=== PATIENT | male | born 1990 ===

== ENCOUNTER 2017-12-31 19:30 | Observation (INO) | payer OTHER ==
--- NOTE | 2017-12-31 20:12 | ED PDOC ---
Lower Extremity Pain/Injury Time Seen by Provider: 12/31/17 19:49 Chief Complaint (Nursing): Lower Extremity Problem/Injury Chief Complaint (Provider): Swealling of lower extremities History Per: Patient History/Exam Limitations: no limitations Onset/Duration Of Symptoms: Days Current Symptoms Are (Timing): Still Present Severity: None Pain Scale Rating Of: 0 Additional Complaint(s): 27 y/o male with PMHx of SLE, diagnosed 10 years ago in [place] presents to ED for evaluation of lower extremities edema for 1 month. States he has been noticing edema in his lower extremities for 1 month, persistent, but improves after sleeping hours, worse at the end of the day, moving up until his external genitalia bilateral. Because he does not have a PMD, went to a Pharmacy in [facility], and the pharmacist prescribed two medications, but he does not know which meds. He has been taken these meds, but is not helping to improve his edema. Also c/o SOB with exertion, riding his bicycle, and walking up stairs. Denies Cp, cough, fevers, chills, malaise, rashes, urinary symptoms or other complains. PMD: None Past Medical History Vital Signs: Last Vital Signs Temp 98.4 F 12/31/17 19:38 Pulse 66 12/31/17 19:38 Resp 20 12/31/17 19:38 BP 162/100 H 12/31/17 19:38 Pulse Ox 99 12/31/17 19:38 - Medical History Other PMH: SLE - Surgical History Other surgeries: Kidney biopsy - Family History Family History: States: Unknown Family Hx - Home Medications Home Medications: Ambulatory Orders Medication Instructions Recorded Unobtainable 12/31/17 - Allergies Allergies/Adverse Reactions: Allergies Allergy/AdvReac Type Severity Reaction Status Date / Time No Known Allergies Allergy Verified 12/31/17 19:38 Wells Criteria for PE - Wells Criteria for Pulmonary Embolism Clinical Signs and Symptoms of DVT: Yes P.E is #1 Diagnosis, or Equally Likely: No Heart Rate >100: No Immobilization at least 3 days;Surgery previous 4 weeks: No Previous, objectively diagnosed PE or DVT: No Hemoptysis: No Malignancy w/treatment within 6 months, or palliative: No Total Score: 3 Review of Systems Constitutional: Negative for: Fever, Chills, Sweats, Weakness, Malaise Respiratory: Positive for: SOB with Exertion. Negative for: Cough, Pleuritic Pain, Wheezing Gastrointestinal: Negative for: Nausea, Vomiting, Abdominal Pain, Diarrhea Physical Exam - Reviewed Nursing Documentation Reviewed: Yes Vital Signs Reviewed: Yes - Physical Exam Appears: Positive for: Non-toxic, No Acute Distress Head Exam: Positive for: ATRAUMATIC, NORMAL INSPECTION, NORMOCEPHALIC Skin: Positive for: Normal Color, Warm, Dry. Negative for: Pallor, Rash, Jaundice Cardiovascular/Chest: Positive for: Regular Rate, Rhythm. Negative for: Chest Non Tender, Murmur, Bradycardia, Friction Rub Respiratory: Positive for: Normal Breath Sounds. Negative for: Crackles, Rales , Rhonchi, Stridor, Wheezing, Respiratory Distress, Plerual Rub Gastrointestinal/Abdominal: Positive for: Bowel Sounds (normal), Soft, Tenderness. Negative for: Distended, Guarding, Asicites Back: Positive for: Normal Inspection. Negative for: L CVA Tenderness, R CVA Tenderness Extremity: Positive for: Pedal Edema (pitting 3+ edema in both lower extremities ). Negative for: Calf Tenderness Neurologic/Psych: Positive for: Alert, Oriented - Laboratory Results Result Diagrams: 12/31/17 20:22 12/31/17 20:22 - ECG O2 Sat by Pulse Oximetry: 99 Medical Decision Making Medical Decision Making: Edema of Lower extremities -most likely secondary to Lupus Nephritis -CBC, CMP -Duplex Dago Vein US SOB on exertion -pro-bnp -troponin I -EKG -CXR case discussed with Dr. Solo Re-evaluation CXR : read by me unremarkable, but official report still pending Labs reviewed: significant for anemia, leukocytosis, elevated BUN and creatinine , hypoalbuminuria Duplex Dago vein US still pending Case discussed with Dr. Solo and decision for admission due MICHELLE and Nephrotic syndrome was made. Hospitalist enterprise resource planning consultant, DR Thornton was called, and report was given Also Nephrology talent acquisition sourcer was called on consult. Spoke with Dr. Ly, and recommended admission for MICHELLE. Recs are appreciated Disposition - Clinical Impression Clinical Impression: Acute kidney injury, SLE (systemic lupus erythematosus) - Patient ED Disposition Is Patient to be Admitted: Yes Discussed With : Dione Solo - Disposition Disposition Time: 23:02 Condition: FAIR Forms: [employer] (Spanish)
[2017-12-31 20:32] LABS: BASO % 0.2 % (0.0-2.0); EOS % 0.2 % (0.0-4.0); HEMOGLOBIN 9.6 g/dL (12.0-18.0); LYMPH # 3.7 K/uL (1.0-4.3); LYMPH % 23.3 % (20.0-40.0); MEAN CELL VOLUME 85.2 fl (80.0-94.0); MEAN CORPUSCULAR HGB CONC 32.9 g/dL (33.0-37.0); MEAN PLATELET VOLUME 8.3 fl (7.2-11.7); MONO # 1.8 K/uL (0.0-0.8); MONO % 11.4 % (0.0-10.0); NEUT # 10.3 K/uL (1.8-7.0); NEUT % 64.9 % (50.0-75.0); RBC 3.42 Mil/uL (4.40-5.90); RED CELL DISTRIBUTION WIDTH 14.5 % (11.5-14.5); WHITE BLOOD COUNT 15.9 K/uL (4.8-10.8)
[2017-12-31 21:10] LABS: ALB/GLOB RATIO 0.7 (1.0-2.1); ALBUMIN 1.8 g/dL (3.5-5.0); ALT/SGPT 21 U/L (21-72); AST/SGOT 41 U/L (17-59); B-TYPE NATRIURETIC PEPTIDE 603 pg/ml (0-450); BLOOD UREA NITROGEN 53 mg/dl (9-20); CALCIUM 7.4 mg/dL (8.4-10.2); GFR NON-AFRICAN AMERICAN 35
[2017-12-31] MEDS ORDERED: Sodium Chloride 0.9% 1,000 ML IV SCH ×2 (22:30→22:45)
[2017-12-31] MEDS ORDERED: Albumin Human 25% (12.5 gm/50 ml) IV ONE (22:40)
[2017-12-31 23:32] LABS: URINE BILIRUBIN NEGATIVE (NEGATIVE); URINE BLOOD NEGATIVE (NEGATIVE); URINE CLARITY CLEAR (Clear); URINE COLOR YELLOW (YELLOW); URINE GLUCOSE (UA) NEG (Normal); URINE LEUKOCYTE ESTERASE NEG Leu/uL (Negative); URINE PROTEIN NEGATIVE (NEGATIVE); URINE UROBILINOGEN 0.2-1.0 mg/dL (0.2-1.0)
--- NOTE | 2018-01-01 06:36 | CP.PCM.HP ---
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 He presents to ED for evaluation of lower extremities edema for 1 month that has been progressive in nature associated with lethargy and heaviness in his legs and exertional SOB. He denies any other associated signs or symptoms such as chest pain, n/v, fever, cough, diarrhea. Only true complaint that brought him here was his pedal edema. Prior to his visit in the ED he tried to remove some edema from his legs by visiting a pharmacy in [place] of which he is unaware which they are however a diuretic is suspected. In the ED he was found to have some slight renal insufficiency and hypoalbumin, when asked about dietary habits he admits to poor oral intake which could consist of only one meal a day due to heavy work demands and hours. He doesn't see a Doctor and/or is aware of any other pmhx. PMD: None Last Vital Signs Temp 98.4 F 12/31/17 19:38 Pulse 66 12/31/17 19:38 Resp 20 12/31/17 19:38 BP 162/100 H 12/31/17 19:38 Pulse Ox 99 12/31/17 19:38 PMHX: LUPUS PSHX: Kidney Biopsy Family History: non contibutary Home Medications: Allergies Allergy/AdvReac Type Severity Reaction Status Date / Time No Known Allergies Allergy Verified 12/31/17 19:38 - ECG O2 Sat by Pulse Oximetry: 99 Present on Admission - Present on Admission Any Indicators Present on Admission: No History of DVT/PE: No History of Uncontrolled Diabetes: No Urinary Catheter: No Decubitus Ulcer Present: No Review of Systems - Constitutional Constitutional: absent: As Per HPI, Anorexia, Chills, Daytime Sleepiness, Excessive Sweating, Fatigue, Fever, Frequent Falls, Headache, Increased Appetite , Lethargy, Malaise, Night Sweats, Snoring, Sleep Apnea, Weight Gain, Weight Loss, Weakness, Other - EENT Eyes: absent: As Per HPI, Blind Spots, Blurred Vision, Change in Vision, Decreased Night Vision, Diplopia, Discharge, Dry Eye, Exophthalmos, Floaters, Irritation, Itchy Eyes, Loss of Peripheral Vision, Pain, Photophobia, Requires Corrective Lenses, Sees Flashes, Spots in Vision, Tunnel Vision, Other Visual Disturbances, Loss of Vision, Other Ears: absent: As Per HPI, Decreased Hearing, Ear Discharge, Ear Pain, Tinnitus, Abnormal Hearing, Disequilibrium, Dizziness, Other Nose/Mouth/Throat: absent: As Per HPI, Epistaxis, Nasal Congestion, Nasal Discharge, Nasal Obstruction, Nasal Trauma, Nose Pain, Post Nasal Drip, Sinus Pain, Sinus Pressure, Bleeding Gums, Change in Voice, Dental Pain, Dry Mouth, Dysphagia, Halitosis, Hoarsness, Lip Swelling, Mouth Lesions, Mouth Pain, Odynophagia, Sore Throat, Throat Swelling, Tongue Swelling, Facial Pain, Neck Pain, Neck Mass, Other - Cardiovascular Cardiovascular: absent: As Per HPI, Acrocyanosis, Chest Pain, Chest Pain at Rest , Chest Pain with Activity, Claudication, Diaphoresis, Dyspnea, Dyspnea on Exertion, Irregular Heart Rhythm, Pain Radiating to Arm/Neck/Jaw, Leg Edema, Leg Ulcers, Lightheadedness, Orthopnea, Palpitations, Paroxysmal Nocturnal Dyspnea, Pedal Edema, Radiating Pain, Rapid Heart Rate, Slow Heart Rate, Syncope , Other Additional comments: edema of legs - Respiratory Respiratory: absent: As Per HPI, Cough, Dyspnea, Hemoptysis, Dyspnea on Exertion , Wheezing, Snoring, Stridor, Pain on Inspiration, Chest Congestion, Excessive Mucous Production, Change in Mucous Color, Pain with Coughing, Other - Gastrointestinal Gastrointestinal: absent: As Per HPI, Abdominal Pain, Belching, Bloating, Change in Bowel Habits, Change in Stool Character, Coffee Ground Emesis, Constipation, Cramping, Diarrhea, Dyspepsia, Dysphagia, Early Satiety, Excessive Flatus, Fecal Incontinence, Heartburn, Hematemesis, Hematochezia, Loose Stools, Melena, Nausea, Odynophagia, Temesmus, Vomiting, Other - Genitourinary Genitourinary: absent: As Per HPI, Change in Urinary Stream, Difficulty Urinating, Dysuria, Flank Pain, Hematuria, Pyuria, Nocturia, Urinary Incontinence, Urinary Frequency, Urinary Hesitance, Urinary Urgency, Voiding Freq/Small Amts, Freq UTI, Hx Renal/Bladder Calculi, Hx /Renal Surgery, Bladder Distension, Other - Musculoskeletal Musculoskeletal: absent: As Per HPI, Abnormal Gait, Arthralgias, Atrophy, Back Pain, Deformity, Joint Swelling, Limited Range of Motion, Loss of Height, Muscle Cramps, Muscle Weakness, Myalgias, Neck Pain, Numbness, Radiating Pain into Limb, Stiffness, Tingling, Other - Integumentary Integumentary: absent: As Per HPI, Acne, Alopecia, Bleeding Lesions, Change in Hair, Change in Nails, Change in Pigmentation, Changing Lesions, Dry Skin, Erythema, Furuncle, Hirsutism, Lesions, New Lesions, Non-Healing Lesions, Photosensitivity, Pruritus, Rash, Skin Pain, Skin Ulcer, Sores, Striae, Swelling , Unusual Bruising, Wounds, Jaundice, Other - Neurological Neurological: absent: As Per HPI, Abnormal Gait, Abnormal Hearing, Abnormal Movements, Abnormal Speech, Behavioral Changes, Burning Sensations, Confusion, Convulsions, Disequilibrium, Dizziness, Numbness, Focal Weakness, Frequent Falls , Headaches, Lack of Coordination, Loss of Vision, Memory Loss, Paresthesias, Radicular Pain, Restless Legs, Sensory Deficit, Syncope, Tingling, Tremor, Vertigo, Weakness, Other Visual Disturbances, Other - Psychiatric Psychiatric: absent: As Per HPI, Abnormal Sleep Pattern, Anhedonia, Anxiety, Auditory Hallucinations, Behavioral Changes, Change in Appetite, Change in Libido, Confusion, Depression, Difficulty Concentrating, Hallucinations, Homicidal Ideation, Hopelessness, Irritability, Memory Loss, Mood Swings, Panic Attacks, Paranoia, Suicidal Ideation, Visual Hallucinations, Tactile Hallucinations, Other - Endocrine Endocrine: absent: As Per HPI, Change in Body Appearance, Change in Libido, Cold Intolorance, Deepening of Voice, Excessive Sweating, Fatigue, Flushing, Heat Intolorance, Increase in Ring/Shoe/Hat Size, Palpitations, Polydipsia, Polyphagia, Polyuria, Other Past Patient History - Past Medical History & Family History Past Medical History?: Yes - Past Social History Smoking Status: Never Smoked - CARDIAC Hx Cardiac Disorders: No - PULMONARY Hx Respiratory Disorders: No - NEUROLOGICAL Hx Neurological Disorder: No - HEENT Hx HEENT Problems: No - RENAL Hx Chronic Kidney Disease: No - ENDOCRINE/METABOLIC Hx Endocrine Disorders: Yes Hx Systemic Lupus Erythematosus: Yes - HEMATOLOGICAL/ONCOLOGICAL Hx Blood Disorders: No - INTEGUMENTARY Hx Dermatological Problems: No - MUSCULOSKELETAL/RHEUMATOLOGICAL Hx Musculoskeletal Disorders: No Hx Falls: No - GASTROINTESTINAL Hx Gastrointestinal Disorders: No - GENITOURINARY/GYNECOLOGICAL Hx Genitourinary Disorders: No - PSYCHIATRIC Hx Psychophysiologic Disorder: No Hx Substance Use: No - SURGICAL HISTORY Hx Surgeries: Yes Other/Comment: Kidney Biopsy - ANESTHESIA Hx Anesthesia: Yes Hx Anesthesia Reactions: No Meds Allergies/Adverse Reactions: Allergies Allergy/AdvReac Type Severity Reaction Status Date / Time No Known Allergies Allergy Verified 12/31/17 19:38 Physical Exam - Constitutional Appears: Well - Head Exam Head Exam: ATRAUMATIC, NORMAL INSPECTION, NORMOCEPHALIC - Eye Exam Eye Exam: EOMI, Normal appearance, PERRL Pupil Exam: NORMAL ACCOMODATION, PERRL - ENT Exam ENT Exam: Mucous Membranes Dry, Normal Exam - Neck Exam Neck exam: Positive for: Normal Inspection - Respiratory Exam Respiratory Exam: Clear to Auscultation Bilateral, NORMAL BREATHING PATTERN - Cardiovascular Exam Cardiovascular Exam: REGULAR RHYTHM - GI/Abdominal Exam GI & Abdominal Exam: Normal Bowel Sounds, Soft - Rectal Exam Rectal Exam: NORMAL INSPECTION - Exam External exam: NORMAL EXTERNAL EXAM - Extremities Exam Extremities exam: Positive for: normal inspection, pedal edema - Back Exam Back exam: NORMAL INSPECTION - Neurological Exam Neurological exam: Alert, CN II-XII Intact - Psychiatric Exam Psychiatric exam: Normal Affect, Normal Mood - Skin Skin Exam: Dry, Intact, Normal Color, Warm Results - Vital Signs Recent Vital Signs: Last Vital Signs Temp 97.8 F 01/01/18 01:10 Pulse 60 01/01/18 01:30 Resp 20 01/01/18 01:30 BP 140/80 01/01/18 01:10 Pulse Ox 97 01/01/18 01:30 - Labs Result Diagrams: 12/31/17 20:22 12/31/17 20:22 Labs: Laboratory Results - last 24 hr 12/31/17 12/31/17 12/31/17 20:22 20:22 23:00 WBC 15.9 H RBC 3.42 L Hgb 9.6 L Hct 29.1 L MCV 85.2 MCH 28.0 MCHC 32.9 L RDW 14.5 Plt Count 417 H MPV 8.3 Neut % (Auto) 64.9 Lymph % (Auto) 23.3 [place] % (Auto) 11.4 H Eos % (Auto) 0.2 Baso % (Auto) 0.2 Neut # (Auto) 10.3 H Lymph # (Auto) 3.7 [place] # (Auto) 1.8 H Eos # (Auto) 0.0 Baso # (Auto) 0.0 Sodium 135 Potassium 4.5 Chloride 115 H Carbon Dioxide 16 L Anion Gap 9 L BUN 53 H Creatinine 2.3 H Est GFR ( Amer) 42 Est GFR (Non-Af Amer) 35 Random Glucose 94 Calcium 7.4 L Total Bilirubin 0.1 L AST 41 ALT 21 Alkaline Phosphatase 89 Troponin I < 0.0120 NT-Pro-B Natriuret Pep 603 H Total Protein 4.5 L Albumin 1.8 L Globulin 2.7 Albumin/Globulin Ratio 0.7 L Urine Color Yellow Urine Clarity Clear Urine pH 6.0 Ur Specific [place] 1.012 Urine Protein Negative Urine Glucose (UA) Neg Urine Ketones Negative Urine Blood Negative Urine Nitrate Negative Urine Bilirubin Negative Urine Urobilinogen 0.2-1.0 Ur Leukocyte Esterase Neg Urine RBC (Auto) < 1 - EKG Data Rate: Normal Assessment & Plan - Assessment and Plan (Free Text) Assessment: This is a 27 faroese speaking gentleman who comes in with pedal edema with no real other associated symptom except for some lethargy and SOB. He was found to have some LUPUS in the past and renal insufficiency and is here for a possible lupus nephritis. Plan: 1) Acute renal insufficiency possibly secondary to Lupus nephritis VS dehydration VS uncontrolled HTN - Nephrology was consulted, LUPUS workup initiated - iv 0.9 ns at 75 cc/hr, will repeat AM labs 2) Uncontrolled HTN- - Norvasc initiated at 5 mg daily, better control noted over night - watch for possible side effect of norvasc with further worsening of pedal edema, avoided diuretics and ROCAEL due to renal insufficiency 3) Pedal edema- hypo albumin noted in bloodwork - possible poor nutrition as he admits to one meal a day - Date & Time Date: 01/01/18 Time: 06:53
[2018-01-01 07:05] LABS: BASO % 0.4 % (0.0-2.0); EOS # 0.2 K/uL (0.0-0.7); EOS % 1.5 % (0.0-4.0); HEMOGLOBIN 9.7 g/dL (12.0-18.0); LYMPH # 4.7 K/uL (1.0-4.3); LYMPH % 39.5 % (20.0-40.0); MEAN CELL VOLUME 85.1 fl (80.0-94.0); MEAN CORPUSCULAR HEMOGLOBIN 28.5 pg (27.0-31.0); MEAN CORPUSCULAR HGB CONC 33.5 g/dL (33.0-37.0); MEAN PLATELET VOLUME 8.3 fl (7.2-11.7); MONO # 1.4 K/uL (0.0-0.8); NEUT # 5.5 K/uL (1.8-7.0); NEUT % 46.6 % (50.0-75.0); RBC 3.39 Mil/uL (4.40-5.90); RED CELL DISTRIBUTION WIDTH 14.4 % (11.5-14.5); WHITE BLOOD COUNT 11.9 K/uL (4.8-10.8)
[2018-01-01 07:26] LABS: CALCIUM 7.4 mg/dL (8.4-10.2)
--- NOTE | 2018-01-01 08:37 | RAD ---
Date of service: 12/31/2017 HISTORY: SOB COMPARISON: No prior. TECHNIQUE: Chest PA and lateral FINDINGS: LUNGS: No active pulmonary disease. PLEURA: No significant pleural effusion identified. No pneumothorax apparent. CARDIOVASCULAR: Normal. OSSEOUS STRUCTURES: No significant abnormalities. VISUALIZED UPPER ABDOMEN: Normal. OTHER FINDINGS: None. IMPRESSION: No active disease.
--- NOTE | 2018-01-01 09:09 | US ---
Date of service: 12/31/2017 PROCEDURE: Bilateral lower extremity venous duplex Doppler. HISTORY: Lower extremities edema COMPARISON: None available. TECHNIQUE: Bilateral common femoral, superficial femoral, popliteal and posterior tibial veins were evaluated. Flow was assessed with color Doppler, compressibility, assessment of phasic flow and augmentation response. FINDINGS: COMMON FEMORAL VEIN: Right CFV: Unremarkable. Left CFV: Unremarkable. SUPERFICIAL FEMORAL VEIN: Right SFV: Unremarkable. Left SFV: Unremarkable. POPLITEAL VEIN: Right Popliteal: Unremarkable. Left Popliteal: Unremarkable. POSTERIOR TIBIAL VEIN: Right PTV: Unremarkable. Left PTV: Unremarkable. OTHER FINDINGS: None. IMPRESSION: No evidence of deep venous thrombosis.
--- NOTE | 2018-01-01 09:14 | US ---
Date of service: 12/31/2017 PROCEDURE: Ultrasound of the Kidneys HISTORY: sarah COMPARISON: None available. TECHNIQUE: Sonogram of the kidneys. FINDINGS: RIGHT KIDNEY: Measures: 12.0 x 7.0 x 5.7 cm. Normal in size, contour and echogenicity. No stone, solid mass lesion or hydronephrosis visualized. LEFT KIDNEY: Measures: 12.0 x 6.4 x 6.0 cm. Normal in size, contour and echogenicity. No stone, solid mass lesion or hydronephrosis visualized. OTHER FINDINGS: None. IMPRESSION: Unremarkable renal sonogram.
[2018-01-01 16:51] VITALS: TEMP 98.2
--- NOTE | 2018-01-01 16:56 | CP.PCM.CON ---
History of Present Illness - History of Present Illness History of Present Illness: Nephrology Consultation Note: Assessment: Stable Acute Kidney Injury (N17.9) ? etiology : improved hx of smoking/alcohol/cocaine which he stopped 3 years ago hypoalbuminemia ? etiology. no proteinuria on urine dipstick hx of lupus s/p kidney biopsy 10 years ago NAGMA Plan No acute need for renal replacement therapy at this time. BP controlled except elevated initially, probably will not need detention. Patient not on ACEI/ARB due to MICHELLE Monitor Input/Output, daily weights and renal function with basic metabolic panel Check urine analysis, spot protein/creatinine and albumin/creatinine ratio, renal sonogram. check UAG with Na/K/Cl in urine Check for 25-OH vitamin D, iPTH, phosphorus level Check GN work up as C3, C4, ESTEPHANIA, Anti dsDNA, ASO titers, ANCA (MPO and AK-3), Anti GBM antibody, HIV/Hep B and Hep C serology urine tox screen, liver sono r/o cirrhosis Dose meds/antibiotics for reduced GFR. Avoid fleets enema/magnesium based laxatives. Avoid nephrotoxins/NSAIDs/ iodinated contrast (unless needed emergently) Glycemic control Further work up/management as per primary team Thanks for allowing me to participate in care of your patient. Will follow patient with you. Please call if any Qs. had d/w team Dr Garry Ly Office: [phone] Chief Complaint; leg swelling HPI: Pt is a 27 M with hx of lupus s/p kidney biopsy 10 years ago, treated with steroid and another medicine for approx 1 year presented with complaints of leg swelling for last 1 week and found to have MICHELLE hence renal consulted Denies OTC/herbal meds or NSAIDs No recent iodinated contrast exposure. No obvious episodes of low BP. reports smoking/alcohol/cocaine which he stopped 3 years ago ROS: Cardiovascular: No chest pain. Pulmonary: No shortness of breath Gastrointestinal: denies abdominal pain No nausea. No vomiting. Genitourinary: No pain while urinating. Denies blood in urine. All other negative except as mentioned in HPI Physical Examination: General Appearance: Comfortable, in no acute respiratory distress, co-operative . Vitals reviewed and noted as below Head; Atraumatic, normocephalic ENT: no ulcers no thrush. Tongue is midline. Oropharynx: no rash or ulcers. EYES: Pupils are equal, round and reactive to light accommodation. Eye muscles and extraocular movement intact. Sclera is anicteric. Neck; supple no lymphadenopathy, no thyromegaly or bruit Lungs: Normal respiratory rate/effort. Breath sounds bilateral equal and clear Heart: Normal rate. s1s2 normal. No rub or gallop. Extremities: 1+ edema. No varicose veins Neurological: Patient is alert, awake and oriented to person, place and time. No focal deficit. Strength bilateral appropriate and equal Skin: Warm and dry. Normal turgor. No rash. Palpitation: Normal elasticity for age Abdomen: Abdomen is soft. Bowel sounds +. There is no abdominal tenderness, no guarding/rigidity no organomegaly Psych: normal insight and normal affect/mood MSK: no joint tenderness or swelling. Digits and nails normal, no deformity : kidney or bladder not palpable Labs/imaging reviewed. Past medical history, past surgical history, family history, social history, allergy reviewed and noted as below Family hx: no hx of CKD. Rest non-contributory UA no protein/blood Past Patient History - Past Medical History & Family History Past Medical History?: Yes - Past Social History Smoking Status: Never Smoked - CARDIAC Hx Cardiac Disorders: No - PULMONARY Hx Respiratory Disorders: No - NEUROLOGICAL Hx Neurological Disorder: No - HEENT Hx HEENT Problems: No - RENAL Hx Chronic Kidney Disease: No - ENDOCRINE/METABOLIC Hx Endocrine Disorders: Yes Hx Systemic Lupus Erythematosus: Yes - HEMATOLOGICAL/ONCOLOGICAL Hx Blood Disorders: No - INTEGUMENTARY Hx Dermatological Problems: No - MUSCULOSKELETAL/RHEUMATOLOGICAL Hx Musculoskeletal Disorders: No Hx Falls: No - GASTROINTESTINAL Hx Gastrointestinal Disorders: No - GENITOURINARY/GYNECOLOGICAL Hx Genitourinary Disorders: No - PSYCHIATRIC Hx Psychophysiologic Disorder: No Hx Substance Use: No - SURGICAL HISTORY Hx Surgeries: Yes Other/Comment: Kidney Biopsy - ANESTHESIA Hx Anesthesia: Yes Hx Anesthesia Reactions: No Meds Allergies/Adverse Reactions: Allergies Allergy/AdvReac Type Severity Reaction Status Date / Time No Known Allergies Allergy Verified 12/31/17 19:38 - Medications Medications: Current Medications Amlodipine Besylate (Norvasc) 5 mg PO DAILY [facility] Heparin Sodium (Porcine) (Heparin) 5,000 units SC Q8 KUSUM PRN Reason: Protocol Last Admin: 01/01/18 08:16 Dose: 5,000 units Results - Vital Signs Recent Vital Signs: Last Vital Signs Temp 97.1 F L 01/01/18 08:16 Pulse 59 L 01/01/18 08:16 Resp 18 01/01/18 08:16 BP 121/71 01/01/18 08:16 Pulse Ox 99 01/01/18 08:16 - Labs Result Diagrams: 01/01/18 05:20 01/01/18 05:20 Labs: Laboratory Results - last 24 hr 12/31/17 12/31/17 12/31/17 20:22 20:22 23:00 WBC 15.9 H RBC 3.42 L Hgb 9.6 L Hct 29.1 L MCV 85.2 MCH 28.0 MCHC 32.9 L RDW 14.5 Plt Count 417 H MPV 8.3 Neut % (Auto) 64.9 Lymph % (Auto) 23.3 [place] % (Auto) 11.4 H Eos % (Auto) 0.2 Baso % (Auto) 0.2 Neut # (Auto) 10.3 H Lymph # (Auto) 3.7 Saline # (Auto) 1.8 H Eos # (Auto) 0.0 Baso # (Auto) 0.0 Sodium 135 Potassium 4.5 Chloride 115 H Carbon Dioxide 16 L Anion Gap 9 L BUN 53 H Creatinine 2.3 H Est GFR ( Amer) 42 Est GFR (Non-Af Amer) 35 Random Glucose 94 Calcium 7.4 L Total Bilirubin 0.1 L AST 41 ALT 21 Alkaline Phosphatase 89 Troponin I < 0.0120 NT-Pro-B Natriuret Pep 603 H Total Protein 4.5 L Albumin 1.8 L Globulin 2.7 Albumin/Globulin Ratio 0.7 L Urine Color Yellow Urine Clarity Clear Urine pH 6.0 Ur Specific [place] 1.012 Urine Protein Negative Urine Glucose (UA) Neg Urine Ketones Negative Urine Blood Negative Urine Nitrate Negative Urine Bilirubin Negative Urine Urobilinogen 0.2-1.0 Ur Leukocyte Esterase Neg Urine RBC (Auto) < 1 01/01/18 01/01/18 05:20 05:20 WBC 11.9 H RBC 3.39 L Hgb 9.7 L Hct 28.9 L MCV 85.1 MCH 28.5 MCHC 33.5 RDW 14.4 Plt Count 397 MPV 8.3 Neut % (Auto) 46.6 L Lymph % (Auto) 39.5 Saline % (Auto) 12.0 H Eos % (Auto) 1.5 Baso % (Auto) 0.4 Neut # (Auto) 5.5 Lymph # (Auto) 4.7 H Saline # (Auto) 1.4 H Eos # (Auto) 0.2 Baso # (Auto) 0.0 Sodium 139 Potassium 4.0 Chloride 120 H Carbon Dioxide 18 L Anion Gap 5 L BUN 44 H Creatinine 1.7 H Est GFR ( Amer) 59 Est GFR (Non-Af Amer) 49 Random Glucose 90 Calcium 7.4 L Total Bilirubin AST ALT Alkaline Phosphatase Troponin I NT-Pro-B Natriuret Pep Total Protein Albumin Globulin Albumin/Globulin Ratio Urine Color Urine Clarity Urine pH Ur Specific [place] Urine Protein Urine Glucose (UA) Urine Ketones Urine Blood Urine Nitrate Urine Bilirubin Urine Urobilinogen Ur Leukocyte Esterase Urine RBC (Auto)
[2018-01-01 18:30] LABS: BARBITURATES, UR NEGATIVE (NEGATIVE); BENZODIAZEPINES, UR NEGATIVE (NEGATIVE); OPIATES, UR NEGATIVE (NEGATIVE); PHENCYCLIDINE, UR NEGATIVE (NEGATIVE)
[2018-01-01] MEDS ORDERED: Sodium Chloride 0.9% 1,000 ML IV SCH (21:00)
[2018-01-02 07:39] LABS: ALB/GLOB RATIO 0.6 (1.0-2.1); ALBUMIN 1.5 g/dL (3.5-5.0); ALT/SGPT 13 U/L (21-72); AST/SGOT 24 U/L (17-59); BILIRUBIN,DIRECT 0.2 mg/ml (0.0-0.4); BLOOD UREA NITROGEN 36 mg/dl (9-20); CALCIUM 7.4 mg/dL (8.4-10.2); GFR NON-AFRICAN AMERICAN 57
[2018-01-02 07:53] VITALS: O2SAT 99
[2018-01-02 08:13] LABS: T4 4.61 ug/dl (5.5-11.0)
[2018-01-02 11:53] LABS: HEPATITIS B SURFACE AG Negative (NEGATIVE)
[2018-01-02 11:58] LABS: HEPATITIS B CORE AB NEGATIVE (NEGATIVE)
[2018-01-02 12:16] LABS: HEPATITIS C ANTIBODY NEGATIVE (NEGATIVE)
--- NOTE | 2018-01-02 13:18 | CP.PCM.PN ---
<Jessica Anderson - Last Filed: 01/02/18 16:00> Subjective - Date & Time of Evaluation Date of Evaluation: 01/02/18 Time of Evaluation: 10:00 - Subjective Subjective: Patient seen and examined at bedside with Dr. Reyez. He reports that he feels well and denies any active complaints. He denies fevers, chills, shortness of breath, chest pain, abdominal pain and diarrhea. Objective - Vital Signs/Intake and Output Vital Signs (last 24 hours): Temp Pulse Resp BP Pulse Ox 98.2 F 69 19 133/81 99 01/02/18 07:52 01/02/18 08:05 01/02/18 07:52 01/02/18 08:05 01/02/18 07:52 - Medications Medications: Current Medications Amlodipine Besylate (Norvasc) 5 mg PO DAILY [facility] Last Admin: 01/02/18 08:05 Dose: 5 mg Heparin Sodium (Porcine) (Heparin) 5,000 units SC Q8 [facility] PRN Reason: Protocol Last Admin: 01/02/18 08:04 Dose: 5,000 units Sodium Chloride (Sodium Chloride 0.9%) 1,000 mls @ 75 mls/hr IV .[id number] KUSUM Stop: 01/02/18 20:54 Last Admin: 01/01/18 21:30 Dose: 75 mls/hr - Labs Labs: 01/01/18 05:20 01/02/18 05:45 - Constitutional Appears: Well, Non-toxic, No Acute Distress - Head Exam Head Exam: NORMAL INSPECTION - Eye Exam Eye Exam: Normal appearance - ENT Exam ENT Exam: Mucous Membranes Moist - Neck Exam Neck Exam: Normal Inspection. absent: Lymphadenopathy, Tenderness, Thyromegaly - Respiratory Exam Respiratory Exam: Clear to Ausculation Bilateral, NORMAL BREATHING PATTERN. absent: Accessory Muscle Use, Chest Wall Tenderness, Decreased Breath Sounds, Prolonged Expiratory Phase, Rales, Rhonchi, Wheezes, Respiratory Distress, Stridor - Cardiovascular Exam Cardiovascular Exam: REGULAR RHYTHM, RRR, +S1, +S2. absent: Clicks, Diastolic murmur, Gallop, JVD, Rubs, Murmur - GI/Abdominal Exam GI & Abdominal Exam: Soft, Normal Bowel Sounds. absent: Distended, Firm, Guarding, Rigid, Tenderness, Organomegaly, Pulsatile Mass, Rebound - Extremities Exam Extremities Exam: Normal Inspection, Pedal Edema (+1 pedal edema. ). 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 Plan: 1) Acute renal insufficiency, ?secondary to Lupus nephritis VS dehydration - Nephrology recommendation appreciated :LUPUS workup initiated, no renal replacement therapy at this time - monitor input/output, daily weight and renal function with BMP. - Continue hydration with NS. 2) Pedal edema- hypo albumin noted in bloodwork - possible poor nutrition as he admits to one meal a day - Extremity ultrasound negative for DVT 3) Hypothyroidism: - TSH: 7.64; T4: 4.61. - F/U: Free T4. 4) Controlled HTN: - Norvasc 5 mg daily, No ROCAEL or ARB due to MICHELLE. - Monitor pedal edema worsening due to Norvasc. 5) DVT prophylaxis: - Continue heparin. - Extremity U/S negative for DVT. 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 Plan: 1) Acute renal insufficiency, ?secondary to Lupus nephritis / dehydration - Nephrology recommendation appreciated :LUPUS workup initiated, no renal replacement therapy at this time - monitor input/output, daily weight and renal function with BMP. - Continue hydration with NS. 2) Pedal edema- hypo albumin noted in blood work - possible poor nutrition as he admits to one meal a day - Extremity ultrasound negative for DVT 3) Hypothyroidism: - TSH: 7.64; T4: 4.61. - F/U: Free T4. 4) Controlled HTN: - Norvasc 5 mg daily, No ROCAEL or ARB due to MICHELLE. - Monitor pedal edema worsening due to Norvasc.
[2018-01-02 16:26] VITALS: BP 120/82; PULSE 72; RESP 20
--- NOTE | 2018-01-02 16:51 | US ---
Date of service: 01/02/2018 HISTORY: abnormal LFT, low alb. please eval for cirrhosis. COMPARISON: None. TECHNIQUE: Sonographic evaluation of the right upper quadrant of the abdomen. FINDINGS: LIVER: Measures 14.9 cm in length. Hepatopedal blood flow. Fatty infiltration manifest ultrasonographically as increased echogenicity of the liver parenchyma. No mass. No intrahepatic bile duct dilatation. GALLBLADDER: Unremarkable. No gallstones. COMMON BILE DUCT: Measures 4.0 mm. No stones. No dilatation. PANCREAS: Unremarkable as visualized. No mass. No ductal dilatation. RIGHT KIDNEY: Measures 11.8 x 5.3 cm in length. Normal echogenicity. No calculus, mass, or hydronephrosis. AORTA: No aneurysmal dilatation. IVC: Unremarkable. OTHER FINDINGS: Trace perihepatic ascites. IMPRESSION: Hepatic steatosis. No focal masses. No intrahepatic bile duct dilatation. Trace perihepatic ascites.
--- NOTE | 2018-01-02 16:55 | CP.PCM.DIS ---
<Jessica Anderson - Last Filed: 01/02/18 18:56> Provider - Provider Date of Admission: 12/31/17 22:25 Attending physician: Benson Thornton MD Consults: Nephrology: Dr. Peter. Time Spent in preparation of Discharge (in minutes): 20 Diagnosis - Discharge Diagnosis (1) Acute kidney injury Status: Acute Comment: Trending down. (2) Pedal edema Status: Acute Comment: Resolved. (3) Hypothyroidism Status: Acute Comment: F/U outpatient. Need to follow up Free T4. (4) HTN (hypertension) Status: Acute Comment: Resolved. (5) DVT prophylaxis Status: Acute Hospital Course - Lab Results Lab Results: Most Recent Lab Values WBC 11.9 K/uL (4.8-10.8) H 01/01/18 05:20 RBC 3.39 Mil/uL (4.40-5.90) L 01/01/18 05:20 Hgb 9.7 g/dL (12.0-18.0) L 01/01/18 05:20 Hct 28.9 % (35.0-51.0) L 01/01/18 05:20 MCV 85.1 fl (80.0-94.0) 01/01/18 05:20 MCH 28.5 pg (27.0-31.0) 01/01/18 05:20 MCHC 33.5 g/dL (33.0-37.0) 01/01/18 05:20 RDW 14.4 % (11.5-14.5) 01/01/18 05:20 Plt Count 397 K/uL (130-400) 01/01/18 05:20 MPV 8.3 fl (7.2-11.7) 01/01/18 05:20 Neut % (Auto) 46.6 % (50.0-75.0) L 01/01/18 05:20 Lymph % (Auto) 39.5 % (20.0-40.0) 01/01/18 05:20 [place] % (Auto) 12.0 % (0.0-10.0) H 01/01/18 05:20 Eos % (Auto) 1.5 % (0.0-4.0) 01/01/18 05:20 Baso % (Auto) 0.4 % (0.0-2.0) 01/01/18 05:20 Neut # (Auto) 5.5 K/uL (1.8-7.0) 01/01/18 05:20 Lymph # (Auto) 4.7 K/uL (1.0-4.3) H 01/01/18 05:20 [place] # (Auto) 1.4 K/uL (0.0-0.8) H 01/01/18 05:20 Eos # (Auto) 0.2 K/uL (0.0-0.7) 01/01/18 05:20 Baso # (Auto) 0.0 K/uL (0.0-0.2) 01/01/18 05:20 Sodium 138 mmol/l (132-148) 01/02/18 05:45 Potassium 4.9 MMOL/L (3.6-5.0) 01/02/18 05:45 Chloride 118 mmol/L (98-107) H 01/02/18 05:45 Carbon Dioxide 19 mmol/L (22-30) L 01/02/18 05:45 Anion Gap 6 (10-20) L 01/02/18 05:45 BUN 36 mg/dl (9-20) H 01/02/18 05:45 Creatinine 1.5 mg/dl (0.8-1.5) 01/02/18 05:45 Est GFR ( Amer) > 60 01/02/18 05:45 Est GFR (Non-Af Amer) 57 01/02/18 05:45 Random Glucose 87 mg/dL (75-110) 01/02/18 05:45 Calcium 7.4 mg/dL (8.4-10.2) L 01/02/18 05:45 Total Bilirubin 0.2 mg/dl (0.2-1.3) 01/02/18 05:45 Direct Bilirubin 0.2 mg/ml (0.0-0.4) 01/02/18 05:45 AST 24 U/L (17-59) 01/02/18 05:45 ALT 13 U/L (21-72) L D 01/02/18 05:45 Alkaline Phosphatase 60 U/L (38-126) 01/02/18 05:45 Troponin I < 0.0120 ng/mL (0.00-0.120) 12/31/17 20:22 NT-Pro-B Natriuret Pep 603 pg/ml (0-450) H 12/31/17 20:22 Total Protein 4.2 G/DL (6.3-8.2) L 01/02/18 05:45 Albumin 1.5 g/dL (3.5-5.0) L 01/02/18 05:45 Globulin 2.7 gm/dL (2.2-3.9) 01/02/18 05:45 Albumin/Globulin Ratio 0.6 (1.0-2.1) L 01/02/18 05:45 Thyroxine (T4) 4.61 ug/dl (5.5-11.0) L 01/02/18 05:45 TSH 3rd Generation 7.64 mIU/ML (0.46-4.68) H 01/02/18 05:45 Urine Color Yellow (YELLOW) 12/31/17 23:00 Urine Clarity Clear (Clear) 12/31/17 23:00 Urine pH 6.0 (5.0-8.0) 12/31/17 23:00 Ur Specific Hunker 1.012 (1.003-1.030) 12/31/17 23:00 Urine Protein Negative mg/dL (NEGATIVE) 12/31/17 23:00 Urine Glucose (UA) Neg mg/dL (Normal) 12/31/17 23:00 Urine Ketones Negative mg/dL (NEGATIVE) 12/31/17 23:00 Urine Blood Negative (NEGATIVE) 12/31/17 23:00 Urine Nitrate Negative (NEGATIVE) 12/31/17 23:00 Urine Bilirubin Negative (NEGATIVE) 12/31/17 23:00 Urine Urobilinogen 0.2-1.0 mg/dL (0.2-1.0) 12/31/17 23:00 Ur Leukocyte Esterase Neg Keesha/uL (Negative) 12/31/17 23:00 Urine RBC (Auto) < 1 /hpf (0-3) 12/31/17 23:00 Ur Random Sodium 80 mmol/L 01/01/18 17:55 Ur Random Potassium 27.1 mmol/L 01/01/18 17:55 Urine Opiates Screen Negative (NEGATIVE) 01/01/18 17:55 Urine Methadone Screen Negative (NEGATIVE) 01/01/18 17:55 Ur Barbiturates Screen Negative (NEGATIVE) 01/01/18 17:55 Ur Phencyclidine Scrn Negative (NEGATIVE) 01/01/18 17:55 Ur Amphetamines Screen Negative (NEGATIVE) 01/01/18 17:55 U Benzodiazepines Scrn Negative (NEGATIVE) 01/01/18 17:55 U Oth Cocaine Metabols Negative (NEGATIVE) 01/01/18 17:55 U Cannabinoids Screen Negative (NEGATIVE) 01/01/18 17:55 Hep Bs Antigen Negative (NEGATIVE) 01/02/18 05:45 Hep Bs Antibody Negative (NEGATIVE) 01/02/18 05:45 Hep B Core IgM Ab Negative (NEGATIVE) 01/02/18 05:45 Hepatitis C Antibody Negative (NEGATIVE) 01/02/18 05:45 HIV 1&2 Antibody Screen Negative (NEGATIVE) 01/02/18 05:45 - Hospital Course Hospital Course: 27 y/o male with a PMHx of LUPUS diagnosed by biopsy 10 years ago in [place] after a neoplasm was seen around his right kidney. He presented to the ED because of bilateral lower extremity edema for 1 month that has been progressive in nature associated with lethargy and heaviness in his legs and exertional SOB. In the ED course: found to have some slight renal insufficiency and hypoalbumin , when asked about dietary habits he admits to poor oral intake which could consist of only one meal a day due to heavy work demands and hours. Patient was over all feeling better and elevated labs were trending down. Nephrology, Dr. Ly, ordered Lupus full workup of which the patient was told the importance of follow up both at the [facility] and with nephrology. Patient also needs to follow up at [facility] for hypothyroidsim workup. Discharge Exam - Head Exam Head Exam: NORMAL INSPECTION - Eye Exam Eye Exam: Normal appearance - ENT Exam ENT Exam: Mucous Membranes Moist, Normal Oropharynx - Respiratory Exam Respiratory Exam: NORMAL BREATHING PATTERN. absent: Accessory Muscle Use, Chest Wall Tenderness, Decreased Breath Sounds, Prolonged Expiratory Phase, Rales, Rhonchi, Wheezes, Respiratory Distress, Stridor - Cardiovascular Exam Cardiovascular Exam: REGULAR RHYTHM, RRR, +S1, +S2. absent: Diastolic murmur, Gallop, JVD, Rubs, +S4, Systolic Murmur - GI/Abdominal Exam GI & Abdominal Exam: Normal Bowel Sounds, Soft, Unremarkable. absent: Distended , Firm, Guarding, Organomegaly, Pulsatile Mass, Rebound, Rigid, Tenderness - Extremities Exam Extremities exam: normal inspection, pedal edema (+1 pedal edema.) - Back Exam Back exam: NORMAL INSPECTION - Neurological Exam Neurological exam: Alert, Oriented x3 - Psychiatric Exam Psychiatric exam: Normal Affect, Normal Mood - Skin Skin Exam: Dry, Intact, Normal Color, Warm Discharge Plan - Discharge Medications Prescriptions: amLODIPine [Norvasc] 5 mg PO DAILY #30 tab - Follow Up Plan Condition: FAIR Disposition: HOME/ ROUTINE Patient education suggested?: Yes Additional Instructions: Patient to follow up with Dr. Ly for Nephrology regarding his Lupus Nephritis Patient to follow up at [facility] to establish care and to work up hypothyroidism. Referrals: [facility] [place] [Outside] Nelson Peter MD [Staff Provider] - <Christiano Reyez - Last Filed: 01/18/18 16:43> Provider - Provider Date of Admission: 12/31/17 22:25 Attending physician: Benson Thornton MD Hospital Course - Lab Results Lab Results: Most Recent Lab Values WBC 11.9 K/uL (4.8-10.8) H 01/01/18 05:20 RBC 3.39 Mil/uL (4.40-5.90) L 01/01/18 05:20 Hgb 9.7 g/dL (12.0-18.0) L 01/01/18 05:20 Hct 28.9 % (35.0-51.0) L 01/01/18 05:20 MCV 85.1 fl (80.0-94.0) 01/01/18 05:20 MCH 28.5 pg (27.0-31.0) 01/01/18 05:20 MCHC 33.5 g/dL (33.0-37.0) 01/01/18 05:20 RDW 14.4 % (11.5-14.5) 01/01/18 05:20 Plt Count 397 K/uL (130-400) 01/01/18 05:20 MPV 8.3 fl (7.2-11.7) 01/01/18 05:20 Neut % (Auto) 46.6 % (50.0-75.0) L 01/01/18 05:20 Lymph % (Auto) 39.5 % (20.0-40.0) 01/01/18 05:20 [place] % (Auto) 12.0 % (0.0-10.0) H 01/01/18 05:20 Eos % (Auto) 1.5 % (0.0-4.0) 01/01/18 05:20 Baso % (Auto) 0.4 % (0.0-2.0) 01/01/18 05:20 Neut # (Auto) 5.5 K/uL (1.8-7.0) 01/01/18 05:20 Lymph # (Auto) 4.7 K/uL (1.0-4.3) H 01/01/18 05:20 [place] # (Auto) 1.4 K/uL (0.0-0.8) H 01/01/18 05:20 Eos # (Auto) 0.2 K/uL (0.0-0.7) 01/01/18 05:20 Baso # (Auto) 0.0 K/uL (0.0-0.2) 01/01/18 05:20 Sodium 138 mmol/l (132-148) 01/02/18 05:45 Potassium 4.9 MMOL/L (3.6-5.0) 01/02/18 05:45 Chloride 118 mmol/L (98-107) H 01/02/18 05:45 Carbon Dioxide 19 mmol/L (22-30) L 01/02/18 05:45 Anion Gap 6 (10-20) L 01/02/18 05:45 BUN 36 mg/dl (9-20) H 01/02/18 05:45 Creatinine 1.5 mg/dl (0.8-1.5) 01/02/18 05:45 Est GFR ( Amer) > 60 01/02/18 05:45 Est GFR (Non-Af Amer) 57 01/02/18 05:45 Random Glucose 87 mg/dL (75-110) 01/02/18 05:45 Calcium 7.4 mg/dL (8.4-10.2) L 01/02/18 05:45 Total Bilirubin 0.2 mg/dl (0.2-1.3) 01/02/18 05:45 Direct Bilirubin 0.2 mg/ml (0.0-0.4) 01/02/18 05:45 AST 24 U/L (17-59) 01/02/18 05:45 ALT 13 U/L (21-72) L D 01/02/18 05:45 Alkaline Phosphatase 60 U/L (38-126) 01/02/18 05:45 Troponin I < 0.0120 ng/mL (0.00-0.120) 12/31/17 20:22 NT-Pro-B Natriuret Pep 603 pg/ml (0-450) H 12/31/17 20:22 Total Protein 4.2 G/DL (6.3-8.2) L 01/02/18 05:45 Albumin 1.5 g/dL (3.5-5.0) L 01/02/18 05:45 Globulin 2.7 gm/dL (2.2-3.9) 01/02/18 05:45 Albumin/Globulin Ratio 0.6 (1.0-2.1) L 01/02/18 05:45 Thyroxine (T4) 4.61 ug/dl (5.5-11.0) L 01/02/18 05:45 TSH 3rd Generation 7.64 mIU/ML (0.46-4.68) H 01/02/18 05:45 Urine Color Yellow (YELLOW) 12/31/17 23:00 Urine Clarity Clear (Clear) 12/31/17 23:00 Urine pH 6.0 (5.0-8.0) 12/31/17 23:00 Ur Specific Hunker 1.012 (1.003-1.030) 12/31/17 23:00 Urine Protein Negative mg/dL (NEGATIVE) 12/31/17 23:00 Urine Glucose (UA) Neg mg/dL (Normal) 12/31/17 23:00 Urine Ketones Negative mg/dL (NEGATIVE) 12/31/17 23:00 Urine Blood Negative (NEGATIVE) 12/31/17 23:00 Urine Nitrate Negative (NEGATIVE) 12/31/17 23:00 Urine Bilirubin Negative (NEGATIVE) 12/31/17 23:00 Urine Urobilinogen 0.2-1.0 mg/dL (0.2-1.0) 12/31/17 23:00 Ur Leukocyte Esterase Neg Keesha/uL (Negative) 12/31/17 23:00 Urine RBC (Auto) < 1 /hpf (0-3) 12/31/17 23:00 Ur Random Creatinine 65 mg/dL (20-370) 12/31/17 07:10 U Random Total Protein 8795 mg/g creat (22-128) H 12/31/17 07:20 Ur Random Sodium 80 mmol/L 01/01/18 17:55 Ur Random Potassium 27.1 mmol/L 01/01/18 17:55 Urine Total Volume 401.2 mg/dL 12/31/17 07:10 Microalb/Creat Ratio 6134 (<30) H 12/31/17 07:10 Urine Chloride 85 mmol/L (32-290) 01/01/18 17:30 Urine Opiates Screen Negative (NEGATIVE) 01/01/18 17:55 Urine Methadone Screen Negative (NEGATIVE) 01/01/18 17:55 Ur Barbiturates Screen Negative (NEGATIVE) 01/01/18 17:55 Ur Phencyclidine Scrn Negative (NEGATIVE) 01/01/18 17:55 Ur Amphetamines Screen Negative (NEGATIVE) 01/01/18 17:55 U Benzodiazepines Scrn Negative (NEGATIVE) 01/01/18 17:55 U Oth Cocaine Metabols Negative (NEGATIVE) 01/01/18 17:55 U Cannabinoids Screen Negative (NEGATIVE) 01/01/18 17:55 Rheumatoid Factor 17 IU/mL (<14) H 12/31/17 22:30 ESTEPHANIA Screen Positive (NEGATIVE) H 12/31/17 22:30 ESTEPHANIA Titer See note titer (()) 12/31/17 22:30 ESTEPHANIA Pattern See note (()) 12/31/17 22:30 ANCA Screen Negative (NEGATIVE) 12/31/17 22:30 c-ANCA Titer TNP 12/31/17 22:30 Proteinase 3 (PR3) <1.0 AI (<1.0) 12/31/17 22:30 p-ANCA Titer TNP 12/31/17 22:30 Atypical p-ANCA Titer TNP 12/31/17 22:30 Myeloperoxidase Ab <1.0 AI (<1.0) 12/31/17 22:30 SS-A Antibody >8.0 pos AI (<1.0 NEGATIVE) H 12/31/17 22:30 SS-B Antibody <1.0 neg AI (<1.0 NEGATIVE) 12/31/17 22:30 Sm (Riggs) Antibody <1.0 neg AI (<1.0 NEGATIVE) 12/31/17 22:30 SM/DIE REPAIRER TRIMMER DIES Antibody <1.0 neg AI (<1.0 NEGATIVE) 12/31/17 22:30 Scl-70 Antibody <1.0 neg AI (<1.0 NEGATIVE) 12/31/17 22:30 Anti-ds DNA Titer (Crith) 1:40 (<1:10) H 12/31/17 22:30 Anti-ds DNA (Crithidia) Positive (NEGATIVE) H 12/31/17 22:30 Ribosomal P Prot Ab <1.0 neg AI (<1.0 NEGATIVE) 12/31/17 22:30 Anti-Mitochondrial Titr TNP 12/31/17 22:30 Anti-Mitochondrial Ab Negative (NEGATIVE) 12/31/17 22:30 Actin IgG Antibody <20 U (()) 12/31/17 22:30 Striated Muscle Ab Negative (NEGATIVE) 12/31/17 22:30 Myocardial Ab Titer TNP 12/31/17 22:30 Anti-Myocardial Ab Negative (NEGATIVE) 12/31/17 22:30 Reticulin Ab Titer TNP 12/31/17 22:30 Reticulin IgA Antibody Negative (NEGATIVE) 12/31/17 22:30 Thyroperoxidase Ab <1 IU/mL (<9) 12/31/17 22:30 Glomerular Base Mem IgG <1.0 AI (<1.0) 12/31/17 22:30 Anti-Parietal Cell Ab <20.0 U 12/31/17 22:30 Complement C3 36 mg/dL (82-185) L 12/31/17 22:30 Complement C4 4 mg/dL (15-53) L 12/31/17 22:30 Hep Bs Antigen Negative (NEGATIVE) 01/02/18 05:45 Hep Bs Antibody Negative (NEGATIVE) 01/02/18 05:45 Hep B Core IgM Ab Negative (NEGATIVE) 01/02/18 05:45 Hepatitis C Antibody Negative (NEGATIVE) 01/02/18 05:45 HIV 1&2 Antibody Screen Negative (NEGATIVE) 01/02/18 05:45 Attending/Attestation - Attestation I have personally seen and examined this patient.: Yes I have fully participated in the care of the patient.: Yes I have reviewed all pertinent clinical information, including history, physical exam and plan: Yes Notes (Text): Acute renal insufficiency due to Lupus nephritis and dehydration
--- NOTE | 2018-01-02 17:54 | CARD ---
APPROVED REPORT Date of service: 12/31/2017 EKG Measurement Heart [id number] [id number] <Conclusion> Sinus bradycardia Otherwise normal ECG
[2018-01-04 20:54] LABS: ANCA SCREEN NEGATIVE (NEGATIVE)
== END 2018-01-02 17:30 | disposition home or self-care (01) ==
LOC: H.ER 19:30 → H.ERHOLD 22:25 → H.MEDSURG1 01-01 01:10
PROVIDERS: ADMIT Internal Medicine; ATTEND Internal Medicine
DX: N17.9 Acute kidney failure, unspecified (principal); E03.9 Hypothyroidism, unspecified; I10 Essential (primary) hypertension; D64.9 Anemia, unspecified; M32.9 Systemic lupus erythematosus, unspecified
CPT/HCPCS: 36415; 71046; 76705; 76770; 80048; 80053; 80076; 80324; 80345; 80346; 80349; 80353; 80358; 80361; 81003; 82043; 82570; 83516; 83520; 83880; 83992; 84133; 84156; 84300; 84436; 84443; 84484; 85025; 86021; 86038; 86160; 86235; 86376; 86431; 86703; 86705; 86706; 86803; 87340; 93005; 93970; 99284; G0378; J1644; J7030

== ENCOUNTER 2018-09-13 10:40 | Day surgery (SDC) | payer SELFPAY ==
[2018-09-13 11:02] VITALS: RESP 18
[2018-09-13] MEDS ORDERED: Sodium Chloride 0.9% 1,000 ML IV ONE (11:33)
[2018-09-13 12:01] LABS: INR 0.9; PROTHROMBIN TIME 10.3 Seconds (9.8-13.1)
[2018-09-13 12:03] LABS: PARTIAL THROMBOPLASTIN TIME 37.1 Seconds (25.6-37.1)
--- NOTE | 2018-09-13 12:46 | CP.SDSHP ---
Same Day Surgery H & P - History Proposed Procedure: US guided renal biopsy Pre-Op Diagnosis: Lupus nephritis - Allergies Allergies: Allergies No Known Allergies Allergy (Verified 09/13/18 11:14) - Physical Exam Vital Signs: Vital Signs 09/13/18 09/13/18 10:59 11:06 Temperature 98.6 F Pulse Rate 59 L 59 L Respiratory 18 Rate Blood Pressure 123/84 O2 Sat by Pulse 98 Oximetry Mental Status: Alert & Oriented x3 - Impression Impression: Pt with lupus nephritis referred for renal biopsy. Plan US guided renal biopsy. Informed consent and risk of bleed, AV fistula, renal injury explained to the patient via publication manager. Pt. Evaluated Today:Candidate for Anesthesia & Procedure: Yes (ASA 2 Malampati 2) - Date & Time Date: 09/13/18 Time: 12:46 Short Stay Discharge - Short Stay Discharge Admitting Diagnosis/Reason for Visit: M32.10, N04.9 Disposition: HOME/ ROUTINE Referrals: Svetlana Mckoy MD [Primary Care Provider] -
[2018-09-13] MEDS ORDERED: Lidocaine Hydrochloride 1% 10 ML ONE (13:01)
[2018-09-13] MEDS ORDERED: Absorbable Gelatin Sponge Size 12-7 ONE (13:01)
--- NOTE | 2018-09-13 13:17 | PCM.SURG1 ---
Surgeon's Initial Post Op Note - Surgeon's Notes Surgeon: Jonny Beltran MD Correctional Case Manager: NONE Type of Anesthesia: IV Sedation Pre-Operative Diagnosis: Lupus Nephritis Operative Findings: US showed unremarkable left kidney Post-Operative Diagnosis: Lupus nephritis Operation Performed: US guided left renal biopsy. Three 18 g core specimen obtained. Biopsy tract embolized with gelfoam. Specimen/Specimens Removed: 18-g core x 3 Estimated Blood Loss: EBL {In ML}: 2 Blood Products Given: N/A Drains Used: No Drains Post-Op Condition: Good Date of Surgery/Procedure: 09/13/18 Time of Surgery/Procedure: 13:15
[2018-09-13] MEDS ORDERED: Sodium Chloride 0.9% 1,000 ML IV SCH (13:30)
[2018-09-13 15:12] VITALS: O2SAT 99
[2018-09-13 16:18] VITALS: BP 128/80; PULSE 67; TEMP 98.4
== END 2018-09-13 16:30 | disposition home or self-care (01) ==
LOC: H.OPSURG 10:40
PROVIDERS: ATTEND Internal Medicine Nephrology
DX: M32.10 Systemic lupus erythematosus, organ or system involvement unspecified (principal); E03.9 Hypothyroidism, unspecified; D64.9 Anemia, unspecified; I12.9 Hypertensive chronic kidney disease with stage 1 through stage 4 chronic kidney disease, or unspecified chronic kidney disease; N18.3 Chronic kidney disease, stage 3 (moderate)
CPT/HCPCS: 36415; 50200; 85610; 85730; 88307; J7030